=== PATIENT | female | born 1940 | race Caucasian/White ===

== ENCOUNTER 2021-07-13 12:52 | Emergency (ER) | payer MEDICARE, OTHER, MEDICAID ==
[2021-07-13] MEDS ORDERED: Sodium Chloride 0.9% 10 ML Syringe FLUSH PRN (12:56)
[2021-07-13] MEDS ORDERED: Morphine 2 MG/ML SYRINGE IVPUSH ONE (13:37)
== END 2021-07-13 19:00 ==
LOC: KA.ED 12:52
DX: R07.89 Other chest pain (principal); I13.0 Hypertensive heart and chronic kidney disease with heart failure and stage 1 through stage 4 chronic kidney disease, or unspecified chronic kidney disease; N18.4 Chronic kidney disease, stage 4 (severe); I50.9 Heart failure, unspecified; R79.1 Abnormal coagulation profile; D63.1 Anemia in chronic kidney disease; I25.10 Atherosclerotic heart disease of native coronary artery without angina pectoris; I25.2 Old myocardial infarction; K21.9 Gastro-esophageal reflux disease without esophagitis; R00.1 Bradycardia, unspecified; Z79.899 Other long term (current) drug therapy
CPT/HCPCS: 36415; 71045; 80053; 83605; 83880; 84484; 85025; 85379; 87040; 93005; 93010; 96374; 99284; 99285-25; J2270

== ENCOUNTER 2022-01-22 09:56 | Inpatient (IN) | payer MEDICARE, OTHER, MEDICAID ==
[2022-01-22] MEDS ORDERED: Sodium Chloride 0.9% 10 ML Syringe FLUSH PRN (10:03)
[2022-01-22] MEDS ORDERED: Albuterol/Ipratropium 3.0-0.5 MG/3 ML Neb Soln NEB ONE (10:42)
[2022-01-22] MEDS: Albuterol/Ipratropium 3.0-0.5 MG/3 ML Neb Soln ONE ×2 (10:45→10:49)
[2022-01-22] MEDS ORDERED: Carvedilol 12.5 MG Tab PO ONE (13:11)
[2022-01-22] MEDS ORDERED: hydrALAZINE 50 MG Tab PO ONE (13:13)
[2022-01-22] MEDS ORDERED: Diltiazem IR 60 MG Tab PO ONE (13:13)
[2022-01-22] MEDS ORDERED: Acetaminophen 325 MG Tab PO PRN (14:12)
[2022-01-22] MEDS ORDERED: guaiFENesin 100 MG/5 ML Soln 5 ML UD Cup PO PRN (14:12)
[2022-01-22] MEDS ORDERED: Docusate Sodium 100 MG Cap PO PRN (14:12)
[2022-01-22] MEDS ORDERED: Aluminum Hydroxide/Magnesium Hydroxide/Simethicone Susp 30 ML Cup PO PRN (14:12)
[2022-01-22] MEDS ORDERED: Albuterol 8 GM Inhaler INH PRN (14:12)
[2022-01-22] MEDS ORDERED: Furosemide 40 MG/4 ML VIAL IVPUSH SCH (15:00)
[2022-01-22] MEDS ORDERED: Loperamide 2 MG Cap PO PRN (15:03)
[2022-01-22] MEDS ORDERED: cefTRIAXone 2 GM Vial IVPUSH SCH (15:15)
[2022-01-22] MEDS ORDERED: Enoxaparin 150 MG/1 ML Syringe SUBCUT SCH (15:30)
[2022-01-22 15:40] LABS: O2 DELIVERY DEVICE NASAL CANNULA
[2022-01-22 15:42] LABS: PCO2 ARTERIAL 32 mm/Hg0 (35-45)
[2022-01-22 15:43] LABS: BICARBONATE,ARTERIAL 24.1 mm/L (22.0-26.0); O2 SATURATION ARTERIAL 99 % (95-98); PO2 ARTERIAL 121 mm/Hg (80-100)
[2022-01-22] MEDS: EPINEPHrine 4 MG in Dextrose 5% in Water 250 ML IV SCH ×6 (16:38→17:32)
[2022-01-22] MEDS ORDERED: Atropine 0.1 MG/ML 10 ML Syringe IVPUSH ONE ×2 (16:58→17:20)
[2022-01-22] MEDS ORDERED: risperiDONE 0.25 MG Tab PO SCH (18:00)
[2022-01-22] MEDS ORDERED: NAMENDA 14 MG PO SCH (18:00)
[2022-01-22] MEDS ORDERED: Sertraline 50 MG Tab PO SCH (18:00)
[2022-01-22] MEDS ORDERED: Donepezil 10 MG Tab PO SCH (18:00)
[2022-01-22 19:40] VITALS: BP 110/44; PULSE 41
[2022-01-22] MEDS ORDERED: hydrALAZINE 50 MG Tab PO SCH (21:00)
[2022-01-22] MEDS ORDERED: Isosorbide Dinitrate 10 MG Tab PO SCH (21:00)
[2022-01-22] MEDS ORDERED: Carvedilol 12.5 MG Tab PO SCH (21:00)
[2022-01-22] MEDS ORDERED: Latanoprost 0.005% Ophth Soln 2.5 ML Bottle EYEBOTH SCH (21:00)
[2022-01-22] MEDS ORDERED: CYCLOSPORINE 0.05% EYEBOTH SCH (21:00)
[2022-01-22] MEDS ORDERED: Melatonin 3 MG Tab PO SCH (21:00)
[2022-01-22] MEDS ORDERED: Pantoprazole 40 MG Tab.CR PO SCH (21:00)
[2022-01-23] MEDS ORDERED: Diltiazem IR 60 MG Tab PO SCH (09:00)
[2022-01-23] MEDS ORDERED: Calcitriol 0.25 MCG Cap PO SCH (09:00)
[2022-01-23] MEDS ORDERED: Allopurinol 100 MG Tab PO SCH (09:00)
[2022-01-23] MEDS ORDERED: Potassium Chloride 10 MEQ Tab.ER PO SCH (09:00)
== END 2022-01-22 17:58 | DRG 193 ==
LOC: KA.ED 09:56 → KA.MS 11:20
PROVIDERS: ADMIT Student in an Organized Health Care Education/Training Program; ATTEND Student in an Organized Health Care Education/Training Program
PROC: 3E033XZ Introduction of Vasopressor into Peripheral Vein, Percutaneous Approach (ICD-10-PCS; principal; 2022-01-22)
DX: J18.9 Pneumonia, unspecified organism (principal); I26.99 Other pulmonary embolism without acute cor pulmonale; R09.02 Hypoxemia; F20.0 Paranoid schizophrenia; I13.0 Hypertensive heart and chronic kidney disease with heart failure and stage 1 through stage 4 chronic kidney disease, or unspecified chronic kidney disease; N18.4 Chronic kidney disease, stage 4 (severe); I50.42 Chronic combined systolic (congestive) and diastolic (congestive) heart failure; I51.7 Cardiomegaly; J30.9 Allergic rhinitis, unspecified; I25.10 Atherosclerotic heart disease of native coronary artery without angina pectoris; F20.9 Schizophrenia, unspecified; D64.9 Anemia, unspecified; I27.20 Pulmonary hypertension, unspecified; Z66 Do not resuscitate; K21.9 Gastro-esophageal reflux disease without esophagitis; K52.9 Noninfective gastroenteritis and colitis, unspecified; M19.90 Unspecified osteoarthritis, unspecified site; E03.9 Hypothyroidism, unspecified; E53.8 Deficiency of other specified B group vitamins; Z20.822 Contact with and (suspected) exposure to COVID-19; Z79.899 Other long term (current) drug therapy; I25.2 Old myocardial infarction; Z79.84 Long term (current) use of oral hypoglycemic drugs; Z87.891 Personal history of nicotine dependence; R00.1 Bradycardia, unspecified
CPT/HCPCS: 36415; 36600; 71045; 80053; 82803; 83605; 83880; 84145; 84484; 85025; 85379; 86140; 93010; 94640; 99284; 99285; A9270-GY; J0171; J0461; J0696; J1650; J7060; J7620-GY; U0002

== ENCOUNTER 2022-02-12 16:09 | Inpatient (IN) | payer MEDICARE, OTHER, MEDICAID ==
[2022-02-12] MEDS ORDERED: Sodium Chloride 0.9% 10 ML Syringe FLUSH PRN (17:12)
[2022-02-12 18:16] LABS: ANION GAP 16.4 mmol/L (5-15); CHLORIDE,CL 104 mmol/L (98-107); SODIUM,NA 140 mmol/L (136-145)
[2022-02-12 18:32] LABS: ESTIMATED GFR 14 mL/min (>=60)
[2022-02-12] MEDS ORDERED: Bumetanide 1 MG/4 ML MDV IVPUSH ONE (18:59)
[2022-02-12] MEDS ORDERED: Albuterol 8 GM Inhaler INH PRN (21:14)
[2022-02-12] MEDS: Pantoprazole 40 MG Tab.CR PO SCH (22:12)
[2022-02-12] MEDS: Isosorbide Dinitrate 10 MG Tab PO SCH (23:05)
[2022-02-13 08:05] LABS: ANION GAP 12.5 mmol/L (5-15)
[2022-02-13] MEDS: hydrALAZINE 50 MG Tab PO SCH ×3 (08:10→21:13)
[2022-02-13] MEDS: Isosorbide Dinitrate 10 MG Tab PO SCH ×3 (08:10→21:16)
[2022-02-13] MEDS: Carvedilol 12.5 MG Tab PO SCH ×2 (08:11→17:36)
[2022-02-13] MEDS: Bumetanide 1 MG Tab PO SCH ×2 (11:06→21:16)
[2022-02-13] MEDS: Heparin Sodium 5,000 Units/ML Vial SUBCUT SCH ×2 (13:40→21:12)
[2022-02-13] MEDS: Donepezil 10 MG Tab PO SCH (17:35)
[2022-02-13] MEDS: risperiDONE 0.25 MG Tab PO SCH (17:35)
[2022-02-13] MEDS: Sertraline 50 MG Tab PO SCH (17:35)
[2022-02-13] MEDS: Pantoprazole 40 MG Tab.CR PO SCH (21:12)
[2022-02-13] MEDS: Latanoprost 0.005% Ophth Soln 2.5 ML Bottle EYEBOTH SCH (21:16)
[2022-02-13] MEDS: Melatonin 3 MG Tab PO SCH (21:16)
[2022-02-14] MEDS ORDERED: Alum Hydrox/Mag Hydrox/Simeth 30 ML, Lidocaine 2% 15 ML PO ONE ×2 (03:30)
[2022-02-14] MEDS: Heparin Sodium 5,000 Units/ML Vial SUBCUT SCH ×3 (03:42→23:12)
[2022-02-14] MEDS: Acetaminophen 325 MG Tab PO PRN ×2 (03:43→19:08)
[2022-02-14 08:12] LABS: ANION GAP 10.7 mmol/L (5-15)
[2022-02-14] MEDS: Bumetanide 1 MG Tab PO SCH ×2 (09:48→23:17)
[2022-02-14] MEDS: hydrALAZINE 50 MG Tab PO SCH ×3 (09:48→23:17)
[2022-02-14] MEDS: Isosorbide Dinitrate 10 MG Tab PO SCH ×3 (09:49→23:16)
[2022-02-14] MEDS: Carvedilol 12.5 MG Tab PO SCH ×2 (09:49→18:38)
[2022-02-14] MEDS: Pantoprazole 40 MG Tab.CR PO SCH ×2 (13:29→23:18)
[2022-02-14] MEDS: Donepezil 10 MG Tab PO SCH (18:39)
[2022-02-14] MEDS: Sertraline 50 MG Tab PO SCH (18:39)
[2022-02-14] MEDS: risperiDONE 0.25 MG Tab PO SCH (18:39)
[2022-02-14] MEDS: Ferrous Sulfate 325 MG Tab PO SCH (18:39)
[2022-02-14] MEDS: Latanoprost 0.005% Ophth Soln 2.5 ML Bottle EYEBOTH SCH (23:15)
[2022-02-14] MEDS: Melatonin 3 MG Tab PO SCH (23:16)
[2022-02-15] MEDS: Heparin Sodium 5,000 Units/ML Vial SUBCUT SCH ×2 (04:05→12:17)
[2022-02-15 08:12] LABS: ANION GAP 10.1 mmol/L (5-15)
[2022-02-15] MEDS: Bumetanide 1 MG Tab PO SCH (08:43)
[2022-02-15] MEDS: Ferrous Sulfate 325 MG Tab PO SCH (08:43)
[2022-02-15] MEDS: Carvedilol 12.5 MG Tab PO SCH (08:45)
[2022-02-15] MEDS: Isosorbide Dinitrate 10 MG Tab PO SCH (08:47)
[2022-02-15] MEDS: hydrALAZINE 50 MG Tab PO SCH (08:48)
[2022-02-15] MEDS ORDERED: [UNRECOGNIZED DRUG - REMARK] PO SCH (21:00)
== END 2022-02-15 13:25 | DRG 682 ==
LOC: KA.MS 17:20
PROVIDERS: ADMIT Nurse Practitioner Family; ATTEND Family Medicine
DX: N17.9 Acute kidney failure, unspecified (principal); I50.43 Acute on chronic combined systolic (congestive) and diastolic (congestive) heart failure; I13.0 Hypertensive heart and chronic kidney disease with heart failure and stage 1 through stage 4 chronic kidney disease, or unspecified chronic kidney disease; Z68.42 Body mass index [BMI] 45.0-49.9, adult; N18.4 Chronic kidney disease, stage 4 (severe); D63.1 Anemia in chronic kidney disease; D50.9 Iron deficiency anemia, unspecified; Z20.822 Contact with and (suspected) exposure to COVID-19; I25.10 Atherosclerotic heart disease of native coronary artery without angina pectoris; E21.3 Hyperparathyroidism, unspecified; E11.22 Type 2 diabetes mellitus with diabetic chronic kidney disease; N28.89 Other specified disorders of kidney and ureter; I27.20 Pulmonary hypertension, unspecified; K21.9 Gastro-esophageal reflux disease without esophagitis; G47.30 Sleep apnea, unspecified; K52.9 Noninfective gastroenteritis and colitis, unspecified; F20.9 Schizophrenia, unspecified; E66.01 Morbid (severe) obesity due to excess calories; Z88.8 Allergy status to other drugs, medicaments and biological substances
CPT/HCPCS: 36415; 71045; 80048; 80053; 83880; 84484; 85025; A9270-GY; J1644; J3490; U0002

== ENCOUNTER 2022-03-11 10:44 | Emergency (ER) | payer MEDICARE, OTHER, MEDICAID ==
[2022-03-11] MEDS ORDERED: Sodium Chloride 0.9% 10 ML Syringe FLUSH PRN (10:49)
[2022-03-11] MEDS ORDERED: Furosemide 40 MG/4 ML VIAL IVPUSH ONE ×2 (11:25→17:23)
== END 2022-03-11 18:35 ==
LOC: KA.ED 10:44
DX: N17.9 Acute kidney failure, unspecified (principal); I13.0 Hypertensive heart and chronic kidney disease with heart failure and stage 1 through stage 4 chronic kidney disease, or unspecified chronic kidney disease; I50.41 Acute combined systolic (congestive) and diastolic (congestive) heart failure; N18.4 Chronic kidney disease, stage 4 (severe); R74.8 Abnormal levels of other serum enzymes; I25.10 Atherosclerotic heart disease of native coronary artery without angina pectoris; I25.2 Old myocardial infarction; Z79.899 Other long term (current) drug therapy
CPT/HCPCS: 36415; 51702; 71045; 80053; 81001; 83605; 83880; 84484; 85025; 87040; 87086; 87088; 87186; 93005; 93010; 96374; 96376; 99285; 99285-25; J1940